=== PATIENT | female | born 1995 | race Caucasian/White ===

== ENCOUNTER 2018-09-09 15:14 | Emergency (ER) | payer BC ==
[~2018-09-09] VITALS: Ht 157.5 cm; Wt 65.6 kg
[2018-09-09 15:18] VITALS: BP 104/81; PULSE 95; RESP 20; Ht 157.5 cm; Wt 65.6 kg
[2018-09-09] MEDS ORDERED: predniSONE 20 MG TAB PO ONE (16:30)
[2018-09-09] MEDS ORDERED: DIPHENHYDRAMINE 50 MG INJ IM ONE (16:30)
[2018-09-09] MEDS ORDERED: PRED20TA PO (16:59)
[2018-09-09] MEDS ORDERED: BEN25 PO (16:59)
--- NOTE | 2018-09-09 17:03 | ERD ---
ER Documentation Chief Complaint Chief Complaint Complains of a generalized rash to the face and arms HPI 22-year-old female presents with a rash on her face, trunk and extremities for the last few days. May have started after eating seafood. She denies any shortness of breath, fevers, additional symptoms. She is uncertain of any specific allergies but may have similar episodes in the past possibly to seafood again. ROS All systems reviewed and are negative except as per history of present illness. Medications Home Meds Active Scripts Diphenhydramine Hcl* (Benadryl*) 25 Mg Cap, 25 MG PO Q6, #20 CAP Prov:BENI ZIMMER MD 09/09/18 Prednisone* (Prednisone*) 20 Mg Tab, 40 MG PO DAILY for 4 Days, TAB Start September 10, 2018 Prov:BENI ZIMMER MD 09/09/18 Allergies Allergies: Coded Allergies: No Known Allergy (Unverified , 09/09/18) PMhx/Soc Medical and Surgical Hx: pt denies Medical Hx, pt denies Surgical Hx Hx Alcohol Use: No Hx Substance Use: No Hx Tobacco Use: No Smoking Status: Never smoker FmHx Family History: No diabetes, No coronary disease, No other Physical Exam Vitals Vital Signs Date Temp Pulse Resp B/P (MAP) Pulse Ox O2 O2 Flow FiO2 Time Delivery Rate 09/09/18 98.9 95 20 104/81 99 15:18 (89) Physical Exam Const: No acute distress Head: Atraumatic Eyes: Normal Conjunctiva ENT: Normal External Ears, Nose and Mouth. Airway patent. Neck: Full range of motion. No meningismus. Resp: Clear to auscultation bilaterally with no wheezing. Cardio: Regular rate and rhythm, no murmurs Abd: Soft, non tender, non distended. Normal bowel sounds Skin: No petechiae or purpura. Scattered maculopapular rash on chest, trunk and extremities mildly on the face. Back: No midline or flank tenderness Ext: No cyanosis, or edema Neur: Awake and alert Psych: Normal Mood and Affect Results 24 hrs Laboratory Tests Test 09/09/18 16:34 POC Beta HCG, Qualitative NEGATIVE Current Medications Medications Dose Sig/Joyce Start Time Status Last (Trade) Ordered Route PRN Stop Time Admin Dose Reason Admin 25 mg ONCE ONCE 09/09/18 DC 09/09/18 Diphenhydrami IM 16:30 16:29 ne HCl 09/09/18 16:31 (Benadryl) Prednisone 40 mg ONCE ONCE 09/09/18 DC 09/09/18 (Prednisone) PO 16:30 16:29 09/09/18 16:31 Procedures/MDM Patient was given Benadryl 25 mg IM and prednisone 40 mg by mouth. Patient presents with urticarial type maculopapular rash after eating seafood. She has no evidence of anaphylaxis, signs of cellulitis, airway obstruction, wheezing. She will treated with a short course of prednisone, Benadryl, primary care follow-up and return precautions for shortness of breath, fevers, new worsening symptoms. The patient was stable with no new complaints during the ER course. Clinically, there is no current evidence to suggest meningitis, sepsis, acute abdomen, pneumonia, stroke, acute coronary syndrome, pulmonary embolism, aortic dissection or any other emergent condition appearing to require further evaluation or hospitalization. Patient counseled regarding my diagnostic impression and care plan. Prior to discharge all questions answered. Pt agrees with treatment plan and understands strict return precautions. Pt is instructed to follow up with primary care provider within 24-48 hours. Precautionary instructions provided including instructions to return to the ER if not improving or for any worsening or changing symptoms or concerns. Departure Diagnosis: Primary Impression: Hives Additional Impression: Rash Condition: Stable Patient Instructions: [employer] Additional Instructions: Cheque otro vez con gama doctor primario en el proximo garrido or regresa para mas o nueva simptomas. BENI ZIMMER MD Sep 09, 2018 17:03
== END 2018-09-09 17:05 | disposition home or self-care (01) ==
LOC: FTE 15:14
DX: L50.9 Urticaria, unspecified (principal)
CPT/HCPCS: 81025; 96372; 99284; J1200; J7512